=== PATIENT | female | born 1960 | race Two or more races ===

== ENCOUNTER 2021-01-31 09:15 | Inpatient (IN) | payer OTHER ==
[~2021-01-31] VITALS: Ht 162.6 cm; Wt 69.4 kg
[2021-01-31] MEDS ORDERED: COZAAR100 MG (11:17)
[2021-01-31] MEDS ORDERED: GLIMEPIRIDE4 MG (11:18)
[2021-01-31] MEDS ORDERED: ANASTROZOLE1 MG (11:18)
[2021-01-31] MEDS ORDERED: METFORMIN PO (11:19)
[2021-01-31] MEDS ORDERED: VITAMINA D3 PO (11:21)
[2021-02-11] MEDS ORDERED: QUESTRAN PACKET4 GM PO (15:21)
[2021-02-11] MEDS ORDERED: ULTRACET PO (15:21)
[2021-02-11] MEDS ORDERED: ACID REDUCER20 M1 PO (15:21)
== END 2021-02-11 18:40 | disposition home or self-care (01) | DRG 331 ==
LOC: ADM 09:15 → EDSTATUS 10:00 → SURH 02-05 07:00 → O/R 02-05 09:00 → SURH 02-05 09:00
PROVIDERS: ADMIT Surgery; ATTEND Surgery
PROC: 0DBU0ZZ Excision of Omentum, Open Approach (ICD-10-PCS; 2021-02-05)
PROC: 07BC0ZZ Excision of Pelvis Lymphatic, Open Approach (ICD-10-PCS; 2021-02-05)
PROC: 0DTE0ZZ Resection of Large Intestine, Open Approach (ICD-10-PCS; principal; 2021-02-05 07:00)
DX: D12.0 Benign neoplasm of cecum (principal); K57.30 Diverticulosis of large intestine without perforation or abscess without bleeding; R59.0 Localized enlarged lymph nodes; Z15.09 Genetic susceptibility to other malignant neoplasm; R00.0 Tachycardia, unspecified; I10 Essential (primary) hypertension; E11.9 Type 2 diabetes mellitus without complications; Z85.038 Personal history of other malignant neoplasm of large intestine